=== PATIENT | male | born 1965 | race African-American/Black ===

== ENCOUNTER 2018-12-07 23:01 | Emergency (ER) | payer BC, OTHER ==
[~2018-12-07] VITALS: Ht 188 cm; Wt 77.1 kg
[~2018-12-07 23:01] MED LIST: ALBUTEROL INHAL17 GM IH; AMLODIPINE BESY10 MG PO; AZITHROMYCIN 2250 MG PO; CIPRO500 MG PO; HYDROCODON-ACE1 EAC7 PO; LEVSIN0.125 MG PO; MUCINEX600 MG PO; OXYBUTYNIN 5 MG5 M2 PO; PREDNISONE 20 M20 MG PO; PREVACID15 MG PO; QVAR REDIHALE10.6 G1 INH; SENNA-S LAXATI1 EACH PO
[2018-12-07 23:45] LABS: EOSINOPHILS 5.1 % (0.0-3.0); MCHC 35.8 g/dL (28.0-37.0); MCV 97.7 fL (80.0-100.0); PLATELET COUNT 297 thou/uL (150-400); POLYS 59.9 % (36.0-66.0); RDW 12.5 % (10.5-14.5); WBC 8.3 thou/uL (4.0-11.0)
[2018-12-07 23:54] LABS: ANION GAP 9 mmol/L (7-16); BUN 22 mg/dL (7-18); CALCIUM 9.5 mg/dL (8.5-10.1); CHLORIDE 105 mmol/L (98-107); CO2 26 mmol/L (21-32); GLUCOSE 95 mg/dL (74-106); POTASSIUM 4.2 mmol/L (3.5-5.1); SODIUM 140 mmol/L (136-145)
[2018-12-08 00:03] LABS: TROPONIN-I <0.06 ng/mL (<0.06)
[2018-12-08 00:27] VITALS: BP 125/71
--- NOTE | 2018-12-08 02:05 | EKG ---
[address] [employer] [place] [address] ELECTROCARDIOGRAM REPORT Name: ANT UREÑA Room #: [facility]#: [id number] Admission: 12/07/18 Attend Phys: Discharge: Date of : 65 Report #: [id number] THIS REPORT FOR: //name// [facility] ED Test Date: 2018-12-07 Test Time: 23:48:14 Pat Name: ANT UREÑA Department: Room: Gender: Jerker: PEGGY : 1965 Requested By: Amanda De Order Number: [id number] MD: Naga Harrington Measurements Intervals [place] Rate: 83 P: 77 AR: 167 QRS: 33 QRSD: 89 T: 58 QT: 383 QTc: 450 Interpretive Statements Sinus rhythm Compared to ECG 08/13/2018 22:45:33 No significant changes Electronically Signed On 12-08-2018 2:05:14 NETWORK PROGRAMMER by Naga Harrington [email or web address] <ELECTRONICALLY SIGNED> By: Naga Harrington MD 12/08/18 [id number] Naga Harrington MD /CROW
== END 2018-12-08 00:27 | disposition home or self-care (01) ==
LOC: ER 23:01
PROVIDERS: Student in an Organized Health Care Education/Training Program
DX: S20.312A Abrasion of left front wall of thorax, initial encounter (principal); S00.81XA Abrasion of other part of head, initial encounter; S00.31XA Abrasion of nose, initial encounter; R06.02 Shortness of breath; F17.210 Nicotine dependence, cigarettes, uncomplicated; J44.9 Chronic obstructive pulmonary disease, unspecified; I10 Essential (primary) hypertension; Z85.46 Personal history of malignant neoplasm of prostate; Z90.79 Acquired absence of other genital organ(s); Y04.2XXA Assault by strike against or bumped into by another person, initial encounter; Y92.89 Other specified places as the place of occurrence of the external cause; Y93.89 Activity, other specified; Y99.8 Other external cause status

== ENCOUNTER 2019-10-06 05:15 | Emergency (ER) | payer OTHER ==
[~2019-10-06] VITALS: Ht 188 cm; Wt 74.8 kg
[2019-10-06] MEDS ORDERED: PRILOSEC OTC20 MG PO (05:25)
[2019-10-06 05:38] LABS: URINE BILIRUBIN NEGATIVE (Negative); URINE BLOOD NEGATIVE (Negative); URINE CLARITY CLEAR; URINE COLOR YELLOW; URINE GLUCOSE-RANDOM* NEGATIVE (Negative); URINE KETONES NEGATIVE (Negative); URINE LEUKOCYTES-REFLEX NEGATIVE (Negative); URINE NITRITE-REFLEX NEGATIVE (Negative); URINE PROTEIN (DIPSTICK) NEGATIVE (Negative)
[2019-10-06 05:51] LABS: ABSOLUTE NEUTROPHILS 3.7 thou/uL (1.4-8.2); EOSINOPHILS 4.8 % (0.0-3.0); HEMATOCRIT 41.7 % (42.0-52.0); HEMOGLOBIN 14.1 gm/dL (14.0-18.0); MCH 33.8 pg (26.0-34.0); MCHC 33.8 g/dL (28.0-37.0); MCV 99.9 fL (80.0-100.0); MONOCYTES 8.6 % (1.0-8.0); PLATELET COUNT 307 thou/uL (150-400); POLYS 53.6 % (36.0-66.0); RBC 4.18 mil/uL (4.50-6.00); RDW 12.1 % (10.5-14.5)
[2019-10-06 06:07] LABS: CALCIUM 9.4 mg/dL (8.5-10.1); CREATININE 0.8 mg/dL (0.7-1.3); POTASSIUM 3.9 mmol/L (3.5-5.1)
[2019-10-06 06:13] LABS: ALBUMIN 4.1 g/dL (3.4-5.0); TOTAL BILIRUBIN 0.5 mg/dL (<0.1-1.0); TOTAL PROTEIN 8.3 g/dL (6.4-8.2)
[2019-10-06 07:03] VITALS: BP 130/89
== END 2019-10-06 07:04 | disposition home or self-care (01) ==
LOC: ER 05:15
PROVIDERS: Emergency Medicine
DX: G89.29 Other chronic pain (principal); R10.30 Lower abdominal pain, unspecified; I10 Essential (primary) hypertension; J44.9 Chronic obstructive pulmonary disease, unspecified; F17.210 Nicotine dependence, cigarettes, uncomplicated; Z85.46 Personal history of malignant neoplasm of prostate; Z90.79 Acquired absence of other genital organ(s)